=== PATIENT | male | born 1955 | race Hispanic/Latino ===

== ENCOUNTER → 2021-02-20 | Day surgery (SDC) | payer OTHER ==
[~2021-02-20] VITALS: Ht 160 cm; Wt 106.6 kg
[~2021-02-20] MED LIST: CYCL15CA21 PO; DEPO-MEDROL ONE; FAMO20TA5 PO; FELO5TAB4 PO; FLUT9.9S16; GABA600T7 PO; HYDR-3105 PO; HYDR12.58 PO; LEVO50TA6 PO; LISI40TA10 PO; METF10007 PO; PARO20TA4 PO; PRAV20TA2 PO
[2021-02-20 09:22] VITALS: BP 134/67
--- NOTE | 2021-02-20 11:59 | PRM.OPH ---
OPERATIVE REPORT OPERATIVE REPORT DATE OF SERVICE: 02/20/2021 CHIEF COMPLAINT: Leg pain PRE-OPERATIVE DIAGNOSIS: Radiculopathy, Lumbar, M54.16 POST-OPERATIVE DIAGNOSIS: Radiculopathy, Lumbar, M54.16 PROCEDURE PERFORMED: Caudal epidural steroid injection, CPT 05223, [id number] DESCRIPTION: After explaining the risks, benefits, and complications to the epidural steriod injection, the patient was placed in the prone position. The procedure was conducted under fluoroscopic guidance. The procedure was also conducted under monitored anesthesia care. Per aseptic technique, prepped back with chlorhexidine. Wiped and draped the back. Using an 22-gauge spinal needle midline, advanced through the sacrococcygeal ligament at the sacral hiatus. Injected 1 cc Omnipaque 180 to confirm the needle was in Epidural space and there was not intravascular or interspianl flow. Good contrast spread cephalad. Negative CSF, negative paresthesia, and negative blood noted. Injected 80 mg of Depomedrol diluted in 3 cc of 0.25% Marcaine and 3 cc of normal saline. Needle was removed intact. Total fluoroscopy time 10 seconds. The patient tolerated the procedure well. Patient was taken back to pre-op room and monitored for 15 minutes with no complications. The patient was then discharged to home in satisfactory condition. LANCE HOFF MD Feb 20, 2021 11:59
== END | disposition home or self-care (01) ==
LOC: SDC 14:10
PROVIDERS: ATTEND Anesthesiology
DX: M54.16 Radiculopathy, lumbar region (principal); G89.4 Chronic pain syndrome; M96.1 Postlaminectomy syndrome, not elsewhere classified; I10 Essential (primary) hypertension; E11.9 Type 2 diabetes mellitus without complications; K21.9 Gastro-esophageal reflux disease without esophagitis; M19.90 Unspecified osteoarthritis, unspecified site; F41.9 Anxiety disorder, unspecified; Z79.899 Other long term (current) drug therapy; Y83.8 Other surgical procedures as the cause of abnormal reaction of the patient, or of later complication, without mention of misadventure at the time of the procedure
CPT/HCPCS: 77003; 82948